=== PATIENT | male | born 1965 | race Caucasian/White ===

== ENCOUNTER 2016-04-22 10:36 | Emergency (ER) | payer BC ==
[2016-04-22 10:48] VITALS: RESP 18
[2016-04-22] MEDS ORDERED: ONDANSETRON ODT 4 MG TAB PO STA (11:03)
[2016-04-22] MEDS ORDERED: IBUPROFEN 600 MG TAB PO STA (11:03)
--- NOTE | 2016-04-22 11:05 | ED ---
General Adult HPI - General Chief complaint: ENT Stated complaint: SORE THROAT, NAUSEA, FEVER Time Seen by Provider: 04/22/16 10:50 Source: patient, RN notes reviewed Mode of arrival: ambulatory Limitations: no limitations - History of Present Illness Initial comments: Patient's a 51-year-old male who presents emergency room today with a chief complaint of cough congestion with a sore throat 4 days. Patient does admit that over the last 4 days she's been having soreness when he swallows. He denies any difficulty swallowing. Patient does admit to cough congestion with no sputum production. He states been tried. Admits to fever and chills and bodyaches. Admits that he began running fevers yesterday. States he did take ibuprofen yesterday has not had any Tylenol or ibuprofen today. Does admit to feeling nauseated off and on throughout the day. Denies any other complaints or symptoms. Patient denies any recent shortness of breath, chest pain, back pain, abdominal pain, vomiting, numbness or tingling, dysuria or hematuria, constipation or diarrhea, headaches or visual changes, or any other complaints. - Related Data Previous Rx's Medication Instructions Recorded Ibuprofen [Motrin] 600 mg PO Q6HR PRN #40 day 04/22/16 Allergies Allergy/AdvReac Type Severity Reaction Status Date / Time No Known Allergies Allergy Verified 04/22/16 10:48 Review of Systems ROS Statement: Those systems with pertinent positive or pertinent negative responses have been documented in the HPI. ROS Other: All systems not noted in ROS Statement are negative. Past Medical History Past Medical History: No Reported History History of Any Multi-Drug Resistant Organisms: None Reported Additional Past Surgical History / Comment(s): VERICOSE VEIN STRIPPING Past Psychological History: No Psychological Hx Reported Smoking Status: Never smoker Past Alcohol Use History: Occasional Past Drug Use History: None Reported General Exam - General Exam Comments Initial Comments: General: The patient is awake and alert, in no distress, and does not appear acutely ill. Eye: Pupils are equal, round and reactive to light, extra-ocular movements are intact. No nystagmus. There is normal conjunctiva bilaterally. No signs of icterus. Ears, nose, mouth and throat: There are moist mucous membranes and no oral lesions. TMs clear bilaterally. Uvula midline. Patient swallows without difficulty. Neck: The neck is supple, there is no tenderness or JVD. Cardiovascular: There is a regular rate and rhythm. No murmur, rub or gallop is appreciated. Respiratory: Lungs are clear to auscultation, respirations are non-labored, breath sounds are equal. No wheezes, stridor, rales, or rhonchi. Gastrointestinal: Soft, non-distended, non-tender abdomen without masses or organomegaly noted. There is no rebound or guarding present. No CVA tenderness. Bowel sounds are unremarkable. Musculoskeletal: Normal ROM, no tenderness. Strength 5/5. Sensation intact. Pulses equal bilaterally 2+. Neurological: A&O x 3. CN II-XII intact, There are no obvious motor or sensory deficits. Coordination appears grossly intact. Speech is normal. Skin: Skin is warm and dry and no rashes or lesions are noted. Psychiatric: Cooperative, appropriate mood & affect, normal judgment. Limitations: no limitations Course Vital Signs 04/22/16 10:43 Temperature 101.1 F H Pulse Rate 120 H Respiratory 18 Rate Blood Pressure 140/90 O2 Sat by Pulse 95 Oximetry Medical Decision Making - Medical Decision Making Patient's tests reviewed and negative strep test. X-ray negative for any pneumonia or other acute abnormalities. Influenza B-positive. Results discussed with the patient. His symptoms started 4 days ago. On arrange for Tamiflu. Advised continue Tylenol/ibuprofen for body aches and fever. Advised increased fluids. Advised follow-up family doctor return if any symptoms increase or worsen. - Lab Data Lab Results 04/22/16 04/22/16 Range/Units 11:24 11:24 Influenza Type A RNA Not Detected (Not Detectd) Influenza Type B (PCR) Detected A (Not Detectd) Group A Strep Rapid Negative (Negative) Disposition Clinical Impression: Influenza B Disposition: HOME SELF-CARE Condition: Good Instructions: Influenza (ED) Additional Instructions: Please use medication as discussed. Please follow-up with family doctor in the next 2 days of symptoms have not improved. Please return to emergency room if the symptoms increase or worsen or for any other concerns. Prescriptions: Ibuprofen [Motrin] 600 mg PO Q6HR PRN #40 day PRN Reason: Pain Time of Disposition: 12:02
--- NOTE | 2016-04-22 11:56 | XR ---
EXAMINATION TYPE: XR chest 2V DATE OF EXAM: 04/22/2016 11:39 AM COMPARISON: NONE HISTORY: Cough TECHNIQUE: Frontal and lateral views of the chest are obtained. FINDINGS: There is no focal air space opacity, pleural effusion, or pneumothorax seen. The cardiac silhouette size is within normal limits. The osseous structures are intact. IMPRESSION: No acute cardiopulmonary process.
[2016-04-22 12:14] VITALS: BP 116/83; PULSE 100; TEMP 100.6
== END 2016-04-22 12:13 | disposition home or self-care (01) ==
LOC: EC 10:36
DX: J10.1 Influenza due to other identified influenza virus with other respiratory manifestations (principal)
CPT/HCPCS: 71020; 87081; 87430; 87502; 99283

== ENCOUNTER 2016-10-29 07:03 | Emergency (ER) | payer BC, OTHER ==
[2016-10-29] MEDS ORDERED: KETOROLAC 30 MG/ML 1 ML VIAL IVP STA (07:56)
[2016-10-29] MEDS ORDERED: ACETAMINOPHEN TAB 500 MG TAB PO STA (07:57)
--- NOTE | 2016-10-29 08:34 | ED ---
General Adult HPI - General Chief complaint: Fall Stated complaint: [facility] Fall Time Seen by Provider: 10/29/16 07:31 Source: patient, EMS, RN notes reviewed, old records reviewed Mode of arrival: EMS Limitations: no limitations - History of Present Illness Initial comments: This is a 51-year-old male here for evaluation. Patient's a nearby EMS for evaluation regarding follow-up. Patient about 4 steps off off a ladder landing on his back and back pain and right shoulder pain. His head, was wearing a hardhat at the time of fall. Patient's follows mechanical he slipped on some oil. Patient denies any other complaints - Related Data Home Medications Medication Instructions Recorded Confirmed Ibuprofen [Motrin] 800 mg PO Q8H PRN 10/29/16 10/29/16 Allergies Allergy/AdvReac Type Severity Reaction Status Date / Time No Known Allergies Allergy Verified 10/29/16 08:12 Review of Systems ROS Statement: Those systems with pertinent positive or pertinent negative responses have been documented in the HPI. ROS Other: All systems not noted in ROS Statement are negative. Past Medical History Past Medical History: No Reported History History of Any Multi-Drug Resistant Organisms: None Reported Additional Past Surgical History / Comment(s): VERICOSE VEIN STRIPPING Past Psychological History: No Psychological Hx Reported Smoking Status: Never smoker Past Alcohol Use History: Occasional Past Drug Use History: None Reported General Exam Limitations: no limitations General appearance: alert, in no apparent distress Head exam: Present: atraumatic, normocephalic, normal inspection Eye exam: Present: normal appearance, PERRL, EOMI. Absent: scleral icterus, conjunctival injection, periorbital swelling ENT exam: Present: normal exam, mucous membranes moist Neck exam: Present: normal inspection. Absent: tenderness, meningismus, lymphadenopathy Respiratory exam: Present: normal lung sounds bilaterally. Absent: respiratory distress, wheezes, rales, rhonchi, stridor Cardiovascular Exam: Present: regular rate, normal rhythm, normal heart sounds. Absent: systolic murmur, diastolic murmur, rubs, gallop, clicks GI/Abdominal exam: Present: soft, normal bowel sounds. Absent: distended, tenderness, guarding, rebound, rigid Extremities exam: Present: normal inspection, full ROM, normal capillary refill. Absent: tenderness, pedal edema, joint swelling, calf tenderness Back exam: Present: normal inspection Neurological exam: Present: alert, oriented X3, CN II-XII intact Psychiatric exam: Present: normal affect, normal mood Skin exam: Present: warm, dry, intact, normal color. Absent: rash Course Vital Signs 10/29/16 07:10 Temperature 97.9 F Pulse Rate 80 Respiratory 18 Rate Blood Pressure 134/83 O2 Sat by Pulse 95 Oximetry - Reevaluation(s) Reevaluation #1: 10/29/16 08:33 Patient has adequate pain relief at this time, requesting no narcotics 10/29/16 08:33 Medical Decision Making - Medical Decision Making 55 male status post mechanical fall slip and fall, back. Back contusion to right shoulder contusion no other injuries. - Radiology Data Radiology results: report reviewed (X-ray chest x-ray pelvis x-ray lumbar spine , x-ray shoulder negative for traumatic injury), image reviewed Disposition Clinical Impression: Fall, Lumbar contusion Disposition: HOME SELF-CARE Condition: Good Instructions: Fall Prevention for Older Adults (ED), Contusion in Adults (ED) Referrals: Lanre Shah MD [Primary Care Provider] - 1-2 days
--- NOTE | 2016-10-29 09:04 | XR ---
EXAMINATION TYPE: XR pelvis AP view DATE OF EXAM: 10/29/2016 COMPARISON: NONE HISTORY: Pain fall backwards on latter TECHNIQUE: Single AP pelvis FINDINGS: Femoral heads articulate with the acetabulum. No acute fractures are evident. Normal bowel gas is present. IMPRESSION: 1. Normal AP pelvis
--- NOTE | 2016-10-29 09:05 | XR ---
EXAMINATION TYPE: XR lumbar spine 2 or 3V DATE OF EXAM: 10/29/2016 COMPARISON: NONE HISTORY: Fall from ladder TECHNIQUE: Three-view lumbar spine FINDINGS: There 5 lumbar-type vertebral bodies. The pedicles are intact. There is attempted sacraliza tion of L5. Disc heights are preserved. Vertebral body heights are preserved. Alignment is normal. IMPRESSION: 1. No acute osseous abnormality lumbar spine
--- NOTE | 2016-10-29 09:06 | XR ---
EXAMINATION TYPE: XR shoulder complete RT DATE OF EXAM: 10/29/2016 COMPARISON: NONE HISTORY: Pain, fall from ladder TECHNIQUE: Shoulder examined in 3 FINDINGS: The humeral head articulates with the glenoid. The acromio-clavicular junction is normal. No acute fractures or dislocations are evident. There is some downward sloping of the acromion. A follow up study can be performed 7-10 days from acute trauma for continued pain. IMPRESSION: 1. Normal Shoulder
--- NOTE | 2016-10-29 09:08 | XR ---
EXAMINATION TYPE: XR chest 1V DATE OF EXAM: 10/29/2016 COMPARISON: NONE HISTORY: Fall from a ladder approximately 3 feet with right-sided pain and shoulder pain. TECHNIQUE: Single frontal view of the chest is obtained. FINDINGS: There is no focal air space opacity, pleural effusion, or pneumothorax seen. The cardiac silhouette size is within normal limits. No displaced rib fractures are seen. IMPRESSION: No acute cardiopulmonary process or displaced rib fractures.
[2016-10-29 09:35] VITALS: BP 146/96; PULSE 76; RESP 16; TEMP 97.8
== END 2016-10-29 09:49 | disposition home or self-care (01) ==
LOC: EC 07:03
DX: S30.0XXA Contusion of lower back and pelvis, initial encounter (principal); S40.011A Contusion of right shoulder, initial encounter; W11.XXXA Fall on and from ladder, initial encounter; Y99.0 Civilian activity done for income or pay; Y92.69 Other specified industrial and construction area as the place of occurrence of the external cause
CPT/HCPCS: 99284; 96374; 71010; 72100; 72170; 73030; J1885